=== PATIENT | female | born 1945 | race Caucasian/White ===

== ENCOUNTER 2018-06-22 22:31 | Observation (INO) | payer OTHER ==
--- NOTE | 2018-06-22 22:50 | PDOC ---
History of Present Illness - General Chief Complaint: Blood Pressure Problem Stated Complaint: Blood Pressure Problem Time Seen by Provider: 06/22/18 22:38 - History of Present Illness Initial Comments: 06/22/18 22:57 73 yo F w a hx of HTN, DM, TIA, 2 recent stents, Hep C is here with very elevated BP. Earlier today in addition to elevated BP she had dizziness, nausea but no emesis, and mild SOB. She is not currently experiencing a headache, dizziness, chest pain, SOB, Flank pain, back pain, or any other complaints. She was recently on a trip to [facility] and states that while she was there she also had an episode of elevated BP which was associated with some mild left sided lip and tongue weakness and chest tightness. She has not experienced any weakness or sensory abnormalities today, and has not experienced any chest tightness today. She denies recent fevers, chills, or infections. Denies dysuria, frequency, urgency. 06/22/18 23:10 Past History - Past Medical History Allergies/Adverse Reactions: Allergies Allergy/AdvReac Type Severity Reaction Status Date / Time morphine Allergy Verified 06/22/18 22:42 Home Medications: Ambulatory Orders Aspirin 81 mg PO DAILY 06/22/18 Clopidogrel Bisulfate [Plavix] 75 mg PO DAILY 06/22/18 Genvoya Tablet 1 tab PO DAILY 06/22/18 Losartan Potassium 50 mg PO DAILY 06/22/18 COPD: No Diabetes: Yes HTN: Yes - Surgical History Cardiac Surgery: Yes (stents) - Suicide/Smoking/Psychosocial Hx Smoking History: Never smoked Review of Systems - Review of Systems Comments:: 06/22/18 23:03 CONSTITUTIONAL: Absent: fever, chills, diaphoresis, generalized weakness, malaise, loss of appetite HEENT: Absent: rhinorrhea, nasal congestion, throat pain, throat swelling, difficulty swallowing, mouth swelling, ear pain, eye pain, visual Changes CARDIOVASCULAR: Present: Chest pain 2 weeks back, peripheral edema Absent: syncope, palpitations, irregular heart rate, lightheadedness RESPIRATORY: Present: Shortness of breath Absent: cough, dyspnea with exertion, orthopnea, wheezing, stridor, hemoptysis GASTROINTESTINAL: Absent: abdominal pain, abdominal distension, nausea, vomiting, diarrhea, constipation, melena, hematochezia GENITOURINARY: Absent: dysuria, frequency, urgency, hesitancy, hematuria, flank pain, genital pain MUSCULOSKELETAL: Absent: myalgia, arthralgia, joint swelling SKIN: Absent: rash, itching, pallor HEMATOLOGIC/IMMUNOLOGIC: Absent: easy bleeding, easy bruising, lymphadenopathy, frequent infections ENDOCRINE: Absent: unexplained weight gain, unexplained weight loss, heat intolerance, cold intolerance NEUROLOGIC: Present: Dizziness Absent: headache, focal weakness or paresthesias, unsteady gait, seizure, mental status changes, bladder or bowel incontinence PSYCHIATRIC: Absent: anxiety, depression, suicidal or homicidal ideation, hallucinations. 06/22/18 23:05 *Physical Exam - Vital Signs Last Vital Signs Temp Pulse Resp BP Pulse Ox 98.3 F 61 18 175/90 100 06/22/18 22:42 06/22/18 22:42 06/22/18 22:42 06/22/18 22:42 06/22/18 22:42 - Physical Exam Comments: 06/22/18 23:06 GENERAL: Well developed, well nourished. Awake and alert. No acute distress. HEENT: Normocephalic, atraumatic. PERRLA, EOMI. No conjunctival pallor. Sclera are non- icteric. Moist mucous membranes. Oropharynx is clear. NECK: Supple. Full ROM. No JVD. No thyromegaly. No lymphadenopathy. CARDIOVASCULAR: Regular rate and rhythm. No murmurs, rubs, or gallops. Distal pulses are 2+ and symmetric. PULMONARY: No evidence of respiratory distress. Lungs clear to auscultation bilaterally. No wheezing, rales or rhonchi. ABDOMINAL: Soft. Non-tender. Non-distended. No rebound or guarding. No organomegaly. Normoactive bowel sounds. MUSCULOSKELETAL Normal range of motion at all joints. No bony deformities or tenderness. No CVA tenderness. EXTREMITIES: No cyanosis. No clubbing. No edema. No calf tenderness. SKIN: Warm and dry. Normal capillary refill. No rashes. No jaundice. NEUROLOGICAL: Alert, awake, appropriate. Cranial nerves 2-12 intact. No deficits to light touch in face, upper extremities and lower extremities. No motor deficits in the in face, upper extremities and lower extremities. Normoreflexic in the upper and lower extremities. Normal speech. Toes are down-going bilaterally. Gait is normal without ataxia. PSYCHIATRIC: Cooperative. Good eye contact. Appropriate mood and affect. ED Treatment Course - LABORATORY CBC & Chemistry Diagram: 06/22/18 23:48 06/22/18 23:48 Medical Decision Making - Medical Decision Making 06/22/18 23:09 73 yo F w a hx of HTN, DM, TIA, 2 recent stents, Hep C is here with very elevated BP. BP at bedside is 167/80. Earlier today she had dizziness and nausea associated with her high BP. Denies headache, back pain, visionary changes, flank pain. At the present time all of her symtpoms have resolved except for her elevated BP. DD includes but not limited to: CVA/TIA, ACS, heart failure, hypertensive emergency/urgency Plan: Head CT, Chest XR, labs, trop, ekg, re-assess. Head CT showed no acute pathology CXR showed no infiltrate or acute pathology. Ekg showed no signs of ACS - sinus bradycardia at 56 bpm. Labs unremarkable and within normal limits. Will do 2nd trop at 3 am. If negative patient can leave. 06/23/18 00:47 *DC/Admit/Observation/Transfer Diagnosis at time of Disposition: Hypertensive urgency, Dizziness - Discharge Dispostion Disposition: HOME Condition at time of disposition: Improved Decision to Admit order: No - Referrals Referrals: Violeta Collins [Primary Care Provider] - - Patient Instructions Printed Discharge Instructions: DI for High Blood Pressure, How to Monitor Your Blood Pressure at Home Additional Instructions: You came into the emergency room because you had very high blood pressure. We did a head cat scan which showed that you weren't bleeding in your head. We did a chest Xray which showed you don't have fluid in your lungs. We looked at your blood work and everything looked good and was within the normal limits. Please make sure to call up your primary care doctor to schedule an appointment in the next 3 to 5 days to make sure you are feeling better. It is extremely important for you to work with your primary care doctor and get your blood pressure under control. Please come back to the emergency room immediately if you start vomiting, get a really bad headache, get a fever, have bad chest pain, or have any other new or worsening concerns. Thank you for coming to the [facility] emergency room. We hope you feel better soon. Print Language: MACEDONIAN - Post Discharge Activity
[2018-06-22 23:57] LABS: BASO % 0.8 % (0-2.0); EOS % 1.6 % (0-4.5); HEMATOCRIT 38.5 % (32.4-45.2); HEMOGLOBIN 12.9 GM/dL (10.7-15.3); LYMPH % 31.9 % (8-40); MCH 30.3 pg (25.7-33.7); MCHC 33.6 g/dl (32.0-36.0); MEAN CELL VOLUME 90.2 fl (80-96); MEAN PLT VOLUME 8.2 fl (7.5-11.1); MONO % 8.4 % (3.8-10.2); NEUT % 57.3 % (42.8-82.8); PLATELET COUNT 238 K/MM3 (134-434); RBC 4.26 M/mm3 (3.60-5.2); RDW 13.6 % (11.6-15.6); WHITE BLOOD COUNT 7.8 K/mm3 (4.0-10.0)
[2018-06-23 00:28] LABS: N-TERMINAL BNP 36.1 pg/ml (5-125)
[2018-06-23 00:31] LABS: ALBUMIN 3.6 g/dl (3.4-5.0); ALK PHOS 103 U/L (45-117); ANION GAP 5 MMOL/L (8-16); BILIRUBIN,TOTAL 0.2 mg/dL (0.2-1); BLOOD UREA NITROGEN 7 mg/dL (7-18); CALCIUM 8.7 mg/dL (8.5-10.1); CHLORIDE 101 mmol/L (98-107); CO2 29 mmol/L (21-32); CREATININE 0.7 mg/dL (0.55-1.3); GLUCOSE,RANDOM 119 mg/dL (74-106); POTASSIUM 4.2 mmol/L (3.5-5.1); SGOT/AST 26 U/L (15-37); SGPT/ALT 22 U/L (13-61); SODIUM 135 mmol/L (136-145); TOT PROT 7.9 g/dl (6.4-8.2)
[2018-06-23 00:38] LABS: ACTIVATED PTT 33.2 SECONDS (25.2-36.5); INR 0.97 (0.83-1.09)
--- NOTE | 2018-06-23 01:55 | PDOC ---
*Physical Exam - Vital Signs Last Vital Signs Temp Pulse Resp BP Pulse Ox 98.0 F 66 18 160/78 100 06/23/18 01:07 06/23/18 01:07 06/23/18 01:07 06/23/18 01:07 06/23/18 01:07 ED Treatment Course - LABORATORY CBC & Chemistry Diagram: 06/22/18 23:48 06/22/18 23:48 - ADDITIONAL ORDERS Additional order review: Laboratory Results 06/22/18 06/22/18 06/22/18 23:48 23:48 23:48 PT with INR INR PTT (Actin FS) Sodium 135 L Potassium 4.2 Chloride 101 Carbon Dioxide 29 Anion Gap 5 L BUN 7 Creatinine 0.7 Creat Clearance w eGFR > 60 Random Glucose 119 H Calcium 8.7 Total Bilirubin 0.2 AST 26 ALT 22 Alkaline Phosphatase 103 Troponin I < 0.02 B-Natriuretic Peptide 36.1 Total Protein 7.9 Albumin 3.6 Lipase 101 Blood Type B POSITIVE Antibody Screen Negative 06/22/18 23:48 PT with INR 11.00 INR 0.97 PTT (Actin FS) 33.2 Sodium Potassium Chloride Carbon Dioxide Anion Gap BUN Creatinine Creat Clearance w eGFR Random Glucose Calcium Total Bilirubin AST ALT Alkaline Phosphatase Troponin I B-Natriuretic Peptide Total Protein Albumin Lipase Blood Type Antibody Screen 06/22/18 23:48 RBC 4.26 MCV 90.2 MCHC 33.6 RDW 13.6 MPV 8.2 Neutrophils % 57.3 Lymphocytes % 31.9 Monocytes % 8.4 Eosinophils % 1.6 Basophils % 0.8 Medical Decision Making - Medical Decision Making 73 year old female presenting with stents in place presenting with an episode of nausea/ vomiting earlier today in the setting of severely elevated BP. Second troponin returned at 0.06 so patient will be admitted to [facility] under hospitalist service. Repeat EKG unchanged from previous. Rate 56, NH 180, QRS 82, QTc 426, normal axis and no ST or T wave changes compared to first EKG but there are no previous ones to compare and theur are twi in V1 with flattening in V2. 06/23/18 04:00 *DC/Admit/Observation/Transfer Diagnosis at time of Disposition: Hypertensive urgency, Dizziness - Discharge Dispostion Disposition: HOME Condition at time of disposition: Improved - Referrals Referrals: Violeta Collins [Primary Care Provider] - - Patient Instructions Printed Discharge Instructions: DI for High Blood Pressure, How to Monitor Your Blood Pressure at Home Additional Instructions: You came into the emergency room because you had very high blood pressure. We did a head cat scan which showed that you weren't bleeding in your head. We did a chest Xray which showed you don't have fluid in your lungs. We looked at your blood work and everything looked good and was within the normal limits. Please make sure to call up your primary care doctor to schedule an appointment in the next 3 to 5 days to make sure you are feeling better. It is extremely important for you to work with your primary care doctor and get your blood pressure under control. Please come back to the emergency room immediately if you start vomiting, get a really bad headache, get a fever, have bad chest pain, or have any other new or worsening concerns. Thank you for coming to the [facility] emergency room. We hope you feel better soon. Print Language: VIETNAMESE - Post Discharge Activity
[2018-06-23] MEDS ORDERED: ASPIRIN 81 MG CHEWABLE TABLETS PO ONE (03:50)
[2018-06-23] MEDS ORDERED: ASPIRIN 81 MG CHEWABLE TABLETS ONE (03:51)
[2018-06-23] MEDS ORDERED: METOPROLOL TARTRATE 25 MG TABLET (FP) PO ONE (04:20)
--- NOTE | 2018-06-23 04:23 | HP ---
CHIEF COMPLAINT: chest pressure PCP: Dennis Cardio: Sharad HISTORY OF PRESENT ILLNESS: This is a 73 year old female with a significant past medical history of HTN, CAD s/p stent who presented to the ED with elevated BP, dizziness, nausea and chest pressure. 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 Last night she called the ambulance but they refused to take her to [place] because her BP was too high. She reports that when she was in [place] she was also having numbess to her tongue but that has resolved. [employer] knobber used #[id number] ER course was notable for: (1) 1st trop 0.02, 2nd 0.06 (2) EKG with no acute ST/T wave changes (3) head CT without acute pathology Recent Travel: [place] PAST MEDICAL HISTORY: HTN, CAD, TIA, DM, Hep C s/p treatment, HIV, H. pylori PAST SURGICAL HISTORY: cardiac stent 1.5 years ago and 3 years ago Social History: Smoking: in her 20s Alcohol: pt denies Drugs: pt denies Family History: mother age 84, comps of CVA, h/o DM, HTN father age 73, "bone CA" and PNA all her siblings have HTN and DM Allergies morphine Allergy (Verified 06/22/18 22:42) HOME MEDICATIONS: 3 Medication Instructions Recorded Aspirin 81 mg PO DAILY 06/22/18 Clopidogrel Bisulfate [Plavix] 75 mg PO DAILY 06/22/18 Genvoya Tablet 1 tab PO DAILY 06/22/18 Losartan Potassium 50 mg PO DAILY 06/22/18 Insulin 75/25 26 u SC in AM REVIEW OF SYSTEMS CONSTITUTIONAL: Absent: fever, chills, diaphoresis, generalized weakness, malaise, loss of appetite, weight change HEENT: Absent: rhinorrhea, nasal congestion, throat pain, throat swelling, difficulty swallowing, mouth swelling, ear pain, eye pain, visual changes CARDIOVASCULAR: Present: chest pressure Absent: chest pain, syncope, palpitations, irregular heart rate, lightheadedness , peripheral edema RESPIRATORY: Absent: cough, shortness of breath, dyspnea with exertion, orthopnea, wheezing, stridor, hemoptysis GASTROINTESTINAL: Present: nausea Absent: abdominal pain, abdominal distension, vomiting, diarrhea, constipation, melena, hematochezia GENITOURINARY: Absent: dysuria, frequency, urgency, hesitancy, hematuria, flank pain, genital pain MUSCULOSKELETAL: Absent: myalgia, arthralgia, joint swelling, back pain, neck pain SKIN: Absent: rash, itching, pallor HEMATOLOGIC/IMMUNOLOGIC: Absent: easy bleeding, easy bruising, lymphadenopathy, frequent infections ENDOCRINE: Absent: unexplained weight gain, unexplained weight loss, heat intolerance, cold intolerance NEUROLOGIC: Present: dizziness Absent: headache, focal weakness or paresthesias, unsteady gait, seizure, mental status changes, bladder or bowel incontinence PSYCHIATRIC: Absent: anxiety, depression, suicidal or homicidal ideation, hallucinations. PHYSICAL EXAMINATION Vital Signs - 24 hr 3 06/22/18 06/23/18 06/23/18 22:42 00:58 01:07 Temperature 98.3 F 98.0 F Pulse Rate 61 Pulse Rate [ 66 66 Left] Respiratory 18 18 18 Rate Blood Pressure 175/90 Blood Pressure 172/82 160/78 [Left Arm] O2 Sat by Pulse 100 100 100 Oximetry (%) 3 06/23/18 04:03 Temperature Pulse Rate Pulse Rate [ 70 Left] Respiratory 18 Rate Blood Pressure Blood Pressure 158/84 [Left Arm] O2 Sat by Pulse 99 Oximetry (%) GENERAL: Awake, alert, and fully oriented, in no acute distress. HEAD: Normal with no signs of trauma. EYES: Pupils equal, round and reactive to light, extraocular movements intact, sclera anicteric, conjunctiva clear. No lid lag. EARS, NOSE, THROAT: Ears normal, nares patent, oropharynx clear without exudates. Moist mucous membranes. NECK: Normal range of motion, supple without lymphadenopathy, JVD, or masses. LUNGS: Breath sounds equal, clear to auscultation bilaterally. No wheezes, and no crackles. No accessory muscle use. HEART: Regular rate and rhythm, normal S1 and S2 without murmur, rub or gallop. ABDOMEN: Soft, nontender, not distended, normoactive bowel sounds, no guarding, no rebound, no masses. No hepatomegaly or splenomegaly. MUSCULOSKELETAL: Normal range of motion at all joints. No bony deformities or tenderness. No CVA tenderness. UPPER EXTREMITIES: 2+ pulses, warm, well-perfused. No cyanosis. No clubbing. No peripheral edema. LOWER EXTREMITIES: 2+ pulses, warm, well-perfused. No calf tenderness. No peripheral edema. NEUROLOGICAL: Cranial nerves II-XII intact. Normal speech. Normal gait. PSYCHIATRIC: Cooperative. Good eye contact. Appropriate mood and affect. SKIN: Warm, dry, normal turgor, no rashes or lesions noted, normal capillary refill. Laboratory Results - last 24 hr 3 06/22/18 06/22/18 06/22/18 06/23/18 23:48 23:48 23:48 02:50 WBC 7.8 RBC 4.26 Hgb 12.9 Hct 38.5 MCV 90.2 MCH 30.3 MCHC 33.6 RDW 13.6 Plt Count 238 MPV 8.2 Absolute Neuts (auto) 4.5 Neutrophils % 57.3 Lymphocytes % 31.9 Monocytes % 8.4 Eosinophils % 1.6 Basophils % 0.8 Nucleated RBC % 0 PT with INR 11.00 INR 0.97 PTT (Actin FS) 33.2 Sodium 135 L Potassium 4.2 Chloride 101 Carbon Dioxide 29 Anion Gap 5 L BUN 7 Creatinine 0.7 Creat Clearance w eGFR > 60 Random Glucose 119 H Calcium 8.7 Total Bilirubin 0.2 AST 26 ALT 22 Alkaline Phosphatase 103 Troponin I < 0.02 0.06 H B-Natriuretic Peptide 36.1 Total Protein 7.9 Albumin 3.6 Lipase 101 Blood Type B POSITIVE Antibody Screen Negative ECG 06/22/18 23:29 Sinus bradycardia vent rate 56, QTC [address]/T wave changes 06/23/18 03:59 Normal Sinus rhythm vent rate 61. QTC [address]/T wave changes Radiology Reports CT head no contrast Impression: Mild volume loss without CT evidence of acute intracranial pathology. Correlate clinically to determine further evaluation and follow-up. Reported By: Gabriel Crenshaw MD 06/22/18 1127 Chest PA/Lat Impression Unremarkable examination without evidence of acute cardiopulmonary disease. Reported By: Gabriel Crenshaw MD 06/22/18 0788 ASSESSMENT/PLAN: 73yF with PMH HTN, CAD, TIA, DM, Hep C s/p treatment, HIV, H. pylori presented to the ED with elevated BP, chest pressure, nausea, dizziness. chest pressure with elevated troponin - cardiology consult - observe on tele - trend troponins - ASA given, add metoprolol, already on plavix - echo ordered CAD s/p stent - pt did not take plavix yesterday as she ran out, resume same - cont losartan, ASA, add metoprolol DM - pt states she was previously on 75/25 insulin 40 units BID but she went on a diet and lost weight and now she only takes 26 units in the morning. If she takes insulin at bedtime, her sugar drops - home 75/25 changed to formulary levemir 26u qam - BGM AC/HS with novolog sliding scale HIV - cont home genvoya, pt has home meds with her DVT PPX - heparin deferred, pt fully ambulatory and anticipated LOS <48h FEN - tolerating po - BMP in am - diabetic low sodium diet as tolerated Dispo: pt currently requires further observation for management of her current condition. Visit type - Emergency Visit Emergency Visit: Yes ED Registration Date: 06/22/18 Care time: The patient presented to the Emergency Department on the above date and was hospitalized for further evaluation of their emergent condition. - New Patient This patient is new to me today: Yes Date on this admission: 06/23/18 - Critical Care Critical Care patient: No Hospitalist Screening - Colonoscopy Questionnaire Colonoscopy Questionnaire: Colonoscopy Questionnaire - Patient: 50 - 75 years old and never had a screening colonoscopy: No (last colonoscopy 2- 3 months ago) History of colon or rectal polyps, or CA: Yes History of IBD, Crohn's disease or UC: No History of abdominal radiation therapy as a child: No - Relative: 1 with colon or rectal CA, or polyps at age 60 or younger: No Colon or rectal CA diagnosed at age 45 or younger: No Multiple relatives with colon or rectal CA: No - Outcome: Screening Result: Positive Screen
[2018-06-23] MEDS ORDERED: ONDANSETRON 4 MG/2 ML VIAL IVPUSH ONE (05:17)
[2018-06-23] MEDS ORDERED: METOPROLOL TARTRATE 25 MG TABLET (FP) ONE (05:23)
[2018-06-23] MEDS ORDERED: INSULIN (LEVEMIR) 100 UNITS/ML UNITS SQ ONE (06:39)
[2018-06-23] MEDS: INSULIN (LEVEMIR) 100 UNITS/ML UNITS SQ SCH (06:49)
[2018-06-23] MEDS: INSULIN SLIDING SCALE (NOVOLOG) 1 VIAL SQ SCH ×4 (06:50→21:09)
[2018-06-23 09:48] LABS: BASO % 0.5 % (0-2.0); EOS % 1.2 % (0-4.5); HEMATOCRIT 37.6 % (32.4-45.2); HEMOGLOBIN 12.5 GM/dL (10.7-15.3); LYMPH % 32.5 % (8-40); MCH 29.9 pg (25.7-33.7); MCHC 33.2 g/dl (32.0-36.0); MEAN CELL VOLUME 90.2 fl (80-96); MEAN PLT VOLUME 7.6 fl (7.5-11.1); MONO % 7.3 % (3.8-10.2); NEUT % 58.5 % (42.8-82.8); PLATELET COUNT 235 K/MM3 (134-434); RBC 4.17 M/mm3 (3.60-5.2); RDW 13.6 % (11.6-15.6); WHITE BLOOD COUNT 7.4 K/mm3 (4.0-10.0)
--- NOTE | 2018-06-23 10:01 | CON.CARD ---
Consult Consult Specialty:: Cardiology Referred by:: ER/Hospitalist Reason for Consultation:: HTN, Chest pressure - History of Present Illness Chief Complaint: Chest pressure, dizziness History of Present Illness: 73 year old woman with pmh HTN, DMII, CAD with reported 2 prior stents ( 1.5years ago and 3 years ago as per report) followed by rf test technician at [facility], h/o TIA, HCV, HIV admitted with uncontrolled HTN, chest pressure, dizziness, nausea. Pt seen and examined in the ER today in [facility]. As per report pts symptoms started last week while in [place] and included numbness of her tongue, she waited to come see her doctor here but EMS would only take her to closest hospital. Currently pt denies any complaints. denies any chest pain or sob since coming to the hospital. still has intermittent dizziness. no pnd, orthopnea, or LE edema. no syncope or near syncope. - History Source History Provided By: Patient Limitations to Obtaining History: Language Barrier - Past Medical History TREASURY ANALYST: Yes: TIA Cardio/Vascular: Yes: CAD, HTN, Hyperlipdemia Hepatobiliary: Yes: Hepatitis C Infectious Disease: Yes: HIV, Other (hcv) Endocrine: Yes: Diabetes Mellitus - Past Surgical History Past Surgical History: Yes: Stent - Alcohol/Substance Use Hx Alcohol Use: No History of Substance Use: reports: None - Smoking History Smoking history: Never smoked Have you smoked in the past 12 months: No - Social History ADL: Independent History of Recent Travel: No Home Medications - Allergies Allergies/Adverse Reactions: Allergies Allergy/AdvReac Type Severity Reaction Status Date / Time morphine Allergy Verified 06/22/18 22:42 - Home Medications Home Medications: Ambulatory Orders Aspirin 81 mg PO DAILY 06/22/18 Clopidogrel Bisulfate [Plavix] 75 mg PO DAILY 06/22/18 Genvoya Tablet 1 tab PO DAILY 06/22/18 Losartan Potassium 50 mg PO DAILY 06/22/18 Family Disease History - Family Disease History Family History: Denies Review of Systems - Review of Systems Constitutional: denies: No Symptoms, Chills, Diaphoresis, Fever, Lethargy, Loss of Appetite, Malaise, Night Sweats, Unintentional Wgt. Loss, Weakness, Other Eyes: denies: No Symptoms, Blind Spots, Blurred Vision, Double Vision, Eye Pain , Floaters, Photophobia, Recent Change in Vision, Other HENT: denies: No Symptoms, Difficult Swallowing, Ear Discharge, Ear Pain, Epistaxis, Gingival Bleeding, Hearing Loss, Mouth Swelling, Nasal Congestion, Ocular Prosthesis, Throat Pain, Toothache, Ringing in Ears, Other Neck: denies: No Symptoms, Decreased ROM, Lumps, Pain on Movement, Stiffness, Swollen Glands, Tenderness, Other Cardiovascular: reports: Chest Pain. denies: No Symptoms, Edema, Palpitations, Shortness of Breath, Other Respiratory: denies: No Symptoms, Cough, Exercise Intolerance, Hemoptysis, Orthopnea, PND, Snoring, SOB, SOB on Exertion, Wheezing, Other Gastrointestinal: reports: Nausea. denies: No Symptoms, Abdominal Pain, Bloating, Constipation, Diarrhea, Dysphagia, Indigestion, Melena, Rectal Bleeding, Vomiting, Vomiting Blood, Other Genitourinary: denies: No Symptoms, Burning, Discharge, Dysuria, Flank Pain, Frequency, Hematuria, Incontinence, Lesions, Menses, Pain, Testicular Mass, Testicular Pain, Testicular Swelling, Urgency, Vaginal Bleeding, Other Breasts: denies: No Symptoms Reported, See HPI, Breast Implants, Discharge from Nipple, Lumps, Pain, Skin Changes, Other Musculoskeletal: denies: No Symptoms, Back Pain, Crepitus, Decreased ROM, Extremity Pain, Joint Pain, Joint Swelling, Muscle Pain, Muscle Cramps, Muscle Weakness, Other Integumentary: denies: No Symptoms, Blister, Bruising, Change in Color, Eczema, Erythema, Incision, Lesions, Lump, Pallor, Pruritis, Rash, Wound, Other Neurological: reports: Dizziness, Headache, Numbness. denies: No Symptoms, Change in LOC, Change in Speech, Confusion, Incoordination, Parasthesia, Pre- Existing Deficit, Seizure, Syncope, Tremors, Unsteady Gait, Weakness, Other Endocrine: denies: No Symptoms, Excessive Sweating, Flushing, Increased Hunger, Increased Thirst, Intolerance to Cold, Intolerance to Heat, Unexplained Weight Gain, Unexplained Weight Loss, Other Hematology/Lymphatic: denies: No Symptoms, Easily Bruised, Excessive Bleeding, Swollen Glands, Other Psychiatric: denies: No Symptoms, Altered Sleep Pattern, Anxiety, Depression, Hallucinations, Panic, Paranoia, Suicidal, Other - Risk Factors Known Risk Factors: Yes: Diabetes Mellitus, Hypercholesterolemia, Hypertension Vital Signs: Vital Signs Temperature 97.6 F 06/23/18 07:15 Pulse Rate 49 L 06/23/18 07:38 Respiratory Rate 18 06/23/18 07:38 Blood Pressure 130/78 06/23/18 07:15 O2 Sat by Pulse Oximetry (%) 100 06/23/18 07:38 Constitutional: Yes: Well Nourished, No Distress, Calm Eyes: Yes: WNL, Conjunctiva Clear, EOM Intact HENT: Yes: WNL, Atraumatic, Normocephalic Neck: Yes: WNL, Supple, Trachea Midline Respiratory: Yes: WNL, Regular, CTA Bilaterally. No: Rales, Rhonchi, Wheezes Gastrointestinal: Yes: WNL, Normal Bowel Sounds, Soft. No: Distention, Tenderness Renal/: Yes: WNL Cardiovascular: Yes: WNL, Regular Rate and Rhythm. No: Bradycardia, Tachycardia , Pulse Irregular, Gallop, Rub, Varicosities JVD: No Carotid Bruit: No PMI: Non-Displaced Heart Sounds: Yes: S1, S2. No: Split S2, S3, S4, Clicks, Gallop, Rub, Bruit Murmur: No: Systolic Murmur, Diastolic Murmur Musculoskeletal: Yes: WNL Extremities: Yes: WNL Edema: No Peripheral Pulses WNL: Yes Peripheral Pulses: 2+ Left Doralis Pedis, 2+ Right Dorsalis Pedis Integumentary: Yes: WNL Neurological: Yes: Alert, Oriented Psychiatric: Yes: Alert, Oriented - Other Data Labs, Other Data: CBC, BMP 06/23/18 09:38 INR, PTT INR 0.97 (0.83-1.09) 06/22/18 23:48 Troponin, BNP 06/22/18 06/22/18 06/23/18 23:48 23:48 02:50 Troponin I < 0.02 0.06 H B-Natriuretic Peptide 36.1 Troponin, BNP 06/22/18 06/22/18 06/23/18 23:48 23:48 02:50 Troponin I < 0.02 0.06 H B-Natriuretic Peptide 36.1 ekg-sinus bradycardia 56bpm, otherwise normal ECG Prior Cardiac Procedures: PTCA with Stent Imaging - Results Chest X-ray: Report Reviewed, Image Reviewed EKG: Report Reviewed, Image Reviewed Other: Report Reviewed, Image Reviewed (tele-no reported events overnight) Assessment/Plan 73 year old woman with pmh HTN, DMII, CAD with reported 2 prior stents ( 1.5years ago and 3 years ago as per report) followed by rf test technician at [facility], h/o TIA, HCV, HIV admitted with uncontrolled HTN, chest pressure, dizziness, nausea. As per report pts symptoms started last week while in [place] and included numbness of her tongue, she waited to come see her doctor here but EMS would only take her to closest hospital. Currently pt denies any complaints. denies any chest pain or sob since coming to the hospital. Chest pressure-r/o ACS, h/o CAD with last PCI reported 1.5 years ago and 3 years ago, details unavailable -please obtain records from [facility] re cardiac cath reports and recent work up -symptoms resolved since admission -in setting of uncontrolled HTN -no ischemia on ekg -2nd troponin mildly elevated, no CK level to correlate -fup 3rd set cardiac enzymes -fup echo -cont ASA, Plavix, metoprolol, losartan -start statin if no contraindication (h/o HCV unknown status) -tele monitoring -HTN control improved -depending on review of prior cardiac work up including cardiac cath report ischemic work up to be considered HTN-uncontrolled on admission -now better controlled -cont metoprolol for now as HR tolerates -cont Losartan and titrate as needed for HTN control
[2018-06-23] MEDS: CLOPIDOGREL BISULFATE 75 MG TABLET (FP) PO SCH (10:28)
[2018-06-23] MEDS: ASPIRIN COATED 81 MG TABLET.EC PO SCH (10:28)
[2018-06-23] MEDS: LOSARTAN POTASSIUM 50 MG TABLET (FP) PO SCH (10:28)
--- NOTE | 2018-06-23 10:48 | EKG ---
Test Reason : Blood Pressure : / mmHG Vent. Rate : 047 BPM Atrial Rate : 047 BPM P-R Int : 192 ms QRS Dur : 082 ms QT Int : 490 ms P-R-T Axes : -06 021 041 degrees QTc Int : 433 ms SINUS BRADYCARDIA OTHERWISE NORMAL ECG WHEN COMPARED WITH ECG OF 23-JUN-2018 03:59, NO SIGNIFICANT CHANGE WAS FOUND Confirmed by MD JOSE, GORGE ([id number]) on 06/23/2018 10:47:35 AM Referred By: Confirmed By:GORGE GARCIA MD
--- NOTE | 2018-06-23 10:50 | EKG ---
Test Reason : Blood Pressure : / mmHG Vent. Rate : 061 BPM Atrial Rate : 061 BPM P-R Int : 180 ms QRS Dur : 082 ms QT Int : 424 ms P-R-T Axes : 015 028 038 degrees QTc Int : 426 ms NORMAL SINUS RHYTHM NORMAL ECG Confirmed by MD JOSE, GORGE ([id number]) on 06/23/2018 10:50:33 AM Referred By: Confirmed By:GORGE GARCIA MD
--- NOTE | 2018-06-23 10:51 | EKG ---
Test Reason : Blood Pressure : / mmHG Vent. Rate : 056 BPM Atrial Rate : 056 BPM P-R Int : 178 ms QRS Dur : 092 ms QT Int : 444 ms P-R-T Axes : 005 025 034 degrees QTc Int : 428 ms SINUS BRADYCARDIA OTHERWISE NORMAL ECG NO PREVIOUS ECGS AVAILABLE Confirmed by MD JOSE, GORGE ([id number]) on 06/23/2018 10:51:17 AM Referred By: Confirmed By:GORGE GARCIA MD
[2018-06-23 10:59] LABS: ANION GAP 9 MMOL/L (8-16); BLOOD UREA NITROGEN 7 mg/dL (7-18); CALCIUM 9.1 mg/dL (8.5-10.1); CHLORIDE 105 mmol/L (98-107); CO2 26 mmol/L (21-32); CREATININE 0.7 mg/dL (0.55-1.3); GLUCOSE,RANDOM 94 mg/dL (74-106); MAGNESIUM 2.1 mg/dL (1.8-2.4); PHOSPHOROUS 3.3 mg/dL (2.5-4.9); POTASSIUM 4.3 mmol/L (3.5-5.1); SODIUM 139 mmol/L (136-145)
--- NOTE | 2018-06-23 11:44 | ECHO ---
Name: LIZZIE ARTHURANTONIO EMI Exam:Adult Echocardiogram Study Date: 06/23/2018 08:03 AM Age: 73 yrs Reason For Study: chest pressure Height: 60 in Weight: 142 lb BSA: 1.6 m2 MMode/2D Measurements & Calculations IVSd: 0.82 cm Ao root diam: 3.3 cm LVIDd: 3.6 cm LA dimension: 4.1 cm LVIDs: 1.9 cm ACS: 1.6 cm LVPWd: 0.90 cm IVSs: 1.1 cm LVPWs: 1.2 cm EDV(Teich): 55.9 ml ESV(Teich): 10.7 ml Doppler Measurements & Calculations MV E max koby: 52.8 cm/sec Ao V2 max: 129.1 cm/sec MV A max koby: 72.3 cm/sec Ao max P.7 mmHg MV E/A: 0.73 Ao V2 mean: 83.2 cm/sec Ao mean P.2 mmHg Ao V2 VTI: 30.8 cm MR max koby: 496.3 cm/sec TR max koby: 184.3 cm/sec MR max P.7 mmHg TR max P.6 mmHg Med Peak E' Koby: 4.2 cm/sec Med E/e': 12.7 Lat Peak E' Koby: 8.4 cm/sec Lat E/e': 6.3 Procedure A two-dimensional transthoracic echocardiogram with color flow and Doppler was performed. The study w as technically difficult with many images being suboptimal in quality. The patient was in normal sinus r hythm during the exam. Left Ventricle Left ventricular systolic function is normal. Ejection Fraction = 60%. E/A reversal consistent with b ut not diagnostic of poor LV compliance. Right Ventricle The right ventricle is not well visualized. The right ventricle is mildly dilated. The right ventricu lar systolic function is grossly normal. Atria The left atrium is mildly dilated. Right atrial size is normal. Mitral Valve The mitral valve is normal. There is mild mitral regurgitation. Tricuspid Valve The tricuspid valve is normal. There is mild tricuspid regurgitation. Aortic Valve The aortic valve is trileaflet. The aortic valve is normal in structure and function. No aortic regur gitation is present. Pulmonic Valve The pulmonic valve is not well visualized. The pulmonic valve is not well seen, but is grossly normal . There is no pulmonic valvular regurgitation. Great Vessels The aortic root is normal size. Pericardium/Pleura There is no pericardial effusion. There is a hypoechoic structure seen in the liver likely consistent with a liver cyst but is not completely visualized. Suggest dedicated imaging to further evaluate as clinica lly indicated. Interpretation Summary The study was technically difficult with many images being suboptimal in quality. Left ventricular systolic function is normal. E/A reversal consistent with but not diagnostic of poor LV compliance The right ventricle is mildly dilated. The right ventricular systolic function is grossly normal. The left atrium is mildly dilated. There is mild mitral regurgitation. There is mild tricuspid regurgitation. There is no pericardial effusion. There is a hypoechoic structure seen in the liver likely consistent with a liver cyst but is not comp letely visualized. Suggest dedicated imaging to further evaluate as clinically indicated. MD Daniel Miles 06/23/2018 11:43 AM
--- NOTE | 2018-06-23 12:22 | PN ---
Progress Note, Physician Chief Complaint: patient seen in ER sleeping in bed woke up patient she denies chest pain feeling hungry - Current Medication List Current Medications: Active Medications Aspirin (Ecotrin -) 81 mg PO DAILY [facility] Last Admin: 06/23/18 10:28 Dose: 81 mg Clopidogrel Bisulfate (Plavix -) 75 mg PO DAILY [facility] Last Admin: 06/23/18 10:28 Dose: 75 mg Insulin Aspart (Novolog Vial Sliding Scale -) 1 vial SQ [facility]; Protocol Last Admin: 06/23/18 11:47 Dose: Not Given Insulin Detemir (Levemir Vial) 26 units SQ DAILY@0700 [facility] Last Admin: 06/23/18 06:49 Dose: 26 units Losartan Potassium (Cozaar -) 50 mg PO DAILY [facility] Last Admin: 06/23/18 10:28 Dose: 50 mg Metoprolol Tartrate (Lopressor -) 25 mg PO BID [facility] Non-Formulary Medication (Genvoya Tablet) 1 tab PO DAILY [facility] - Objective Vital Signs: Vital Signs Temperature 98.1 F 06/23/18 10:28 Pulse Rate 52 L 06/23/18 10:28 Respiratory Rate 18 06/23/18 10:28 Blood Pressure 140/78 06/23/18 10:28 O2 Sat by Pulse Oximetry (%) 100 06/23/18 10:28 Constitutional: Yes: Calm Cardiovascular: Yes: Regular Rate and Rhythm, S1, S2 Respiratory: Yes: CTA Bilaterally Gastrointestinal: Yes: Normal Bowel Sounds, Soft Edema: No Neurological: Yes: Alert, Oriented Labs: CBC, BMP 06/23/18 09:38 06/23/18 09:38 INR, PTT INR 0.97 (0.83-1.09) 06/22/18 23:48 Problem List - Problems (1) Hypertensive urgency Assessment/Plan: BP better controlled continue losartan,metoprolol Code(s): I16.0 - HYPERTENSIVE URGENCY (2) Chest pain Assessment/Plan: echo done left ventricle systolic function normal mild MR, asa,plavix,bb will start statin 3rd set CE pending Code(s): R07.9 - CHEST PAIN, UNSPECIFIED
[2018-06-23 17:07] VITALS: BMI 27.6
[2018-06-23] MEDS ORDERED: FLU VACCINE QUAD 60 MCG/0.5 ML (MDV 18-19) IM ONE (17:12)
[2018-06-23] MEDS ORDERED: PT OWN MED DRAWER 7, Y5N ONE ×3 (18:39→22:56)
[2018-06-23] MEDS: METOPROLOL TARTRATE 25 MG TABLET (FP) PO SCH (21:00)
[2018-06-23] MEDS ORDERED: ATORVASTATIN CA 10 MG TABLET (FP) PO SCH (22:00)
[2018-06-24] MEDS: INSULIN SLIDING SCALE (NOVOLOG) 1 VIAL SQ SCH ×3 (06:00→17:06)
[2018-06-24] MEDS: CLOPIDOGREL BISULFATE 75 MG TABLET (FP) PO SCH (09:50)
[2018-06-24] MEDS: LOSARTAN POTASSIUM 50 MG TABLET (FP) PO SCH (09:50)
[2018-06-24] MEDS: ASPIRIN COATED 81 MG TABLET.EC PO SCH (09:50)
[2018-06-24] MEDS: METOPROLOL TARTRATE 25 MG TABLET (FP) PO SCH (09:50)
[2018-06-24] MEDS: INSULIN (LEVEMIR) 100 UNITS/ML UNITS SQ SCH (09:51)
[2018-06-24] MEDS ORDERED: GENVOYA PO SCH (10:00)
[2018-06-24 11:16] VITALS: TEMP 97.8
[2018-06-24] MEDS ORDERED: METOPROLOL TARTRATE 25 MG TABLET (FP) PO SCH (12:16)
--- NOTE | 2018-06-24 12:16 | PN ---
Progress Note, Physician History of Present Illness: seen and examined today in [facility]. no overnight events. no further chest pain. - Current Medication List Current Medications: Active Medications Aspirin (Ecotrin -) 81 mg PO DAILY [facility] Last Admin: 06/24/18 09:50 Dose: 81 mg Clopidogrel Bisulfate (Plavix -) 75 mg PO DAILY [facility] Last Admin: 06/24/18 09:50 Dose: 75 mg Insulin Aspart (Novolog Vial Sliding Scale -) 1 vial SQ [facility]; Protocol Last Admin: 06/24/18 06:00 Dose: Not Given Insulin Detemir (Levemir Vial) 26 units SQ DAILY@0700 [facility] Last Admin: 06/24/18 09:51 Dose: 26 units Losartan Potassium (Cozaar -) 50 mg PO DAILY [facility] Last Admin: 06/24/18 09:50 Dose: 50 mg Metoprolol Tartrate (Lopressor -) 25 mg PO BID [facility] Last Admin: 06/24/18 09:50 Dose: Not Given Non-Formulary Medication (Genvoya Tablet) 1 tab PO DAILY [facility] Last Admin: 06/24/18 09:51 Dose: 1 tab - Objective Vital Signs: Vital Signs Temperature 97.8 F 06/24/18 10:00 Pulse Rate 50 L 06/24/18 10:00 Respiratory Rate 16 06/24/18 10:00 Blood Pressure 105/54 L 06/24/18 10:00 O2 Sat by Pulse Oximetry (%) 96 06/24/18 10:00 Constitutional: Yes: No Distress, Calm Eyes: Yes: Conjunctiva Clear, EOM Intact, PERRL HENT: Yes: Atraumatic, Normocephalic Neck: Yes: Supple, Trachea Midline Cardiovascular: Yes: Regular Rate and Rhythm, S1, S2. No: Bradycardia, Tachycardia, Pulse Irregular, Bruit, JVD, Gallop, Murmur, Rub, S3, S4, Varicosities Respiratory: Yes: Regular, CTA Bilaterally. No: Rales, Rhonchi, Wheezes Gastrointestinal: Yes: Normal Bowel Sounds, Soft. No: Distention, Tenderness Musculoskeletal: Yes: WNL Extremities: Yes: WNL Edema: No Peripheral Pulses WNL: Yes Neurological: Yes: Alert, Oriented Psychiatric: Yes: Alert, Oriented Labs: CBC, BMP 06/23/18 09:38 06/23/18 09:38 INR, PTT INR 0.97 (0.83-1.09) 06/22/18 23:48 - ....Imaging Chest X-ray: Report Reviewed, Image Reviewed EKG: Report Reviewed, Image Reviewed Other: Report Reviewed, Image Reviewed (tele-nsr, sinus bradycardia) Assessment/Plan 73 year old woman with pmh HTN, DMII, CAD with reported 2 prior stents ( 1.5years ago and 3 years ago as per report) followed by telex operator at [facility], h/o TIA, HCV, HIV admitted with uncontrolled HTN, chest pressure, dizziness, nausea. As per report pts symptoms started last week while in [place] and included numbness of her tongue, she waited to come see her doctor here but EMS would only take her to closest hospital. Currently pt denies any complaints. denies any chest pain or sob since coming to the hospital. Chest pressure-r/o ACS, h/o CAD with last PCI reported 02/2018 1.5 years ago and 3 years ago, details unavailable -spoke with pts daughter on phone today who states that she had a stent 02/2018 at [facility] and had fup planned with her telex operator this week -symptoms resolved since admission -in setting of uncontrolled HTN -no ischemia on ekg -ck and trop did not trend up -echo showed normal LV systolic function only mild valvular abnl -cont ASA, Plavix, metoprolol, losartan -start statin if no contraindication (h/o HCV unknown status) -HTN control improved -given recent stent once HTN adequately controlled pt would be acceptable for discharge from a cardiac standpoint with plan for close outpatient fup with her telex operator HTN-uncontrolled on admission -improving -cont metoprolol for now as HR tolerates -cont Losartan and titrate as needed for HTN control Sinus bradycardia-mild during day, 40s overnight, asymptomatic -can reduce lopressor to 12.5mg bid and pt can have outpatient fup to consider holter monitor
--- NOTE | 2018-06-24 14:33 | DS ---
Physical Examination Vital Signs: Vital Signs Temperature 97.8 F 06/24/18 10:00 Pulse Rate 50 L 06/24/18 10:00 Respiratory Rate 16 06/24/18 10:00 Blood Pressure 105/54 L 06/24/18 10:00 O2 Sat by Pulse Oximetry (%) 96 06/24/18 10:00 Constitutional: Yes: No Distress Eyes: Yes: WNL HENT: Yes: WNL Neck: Yes: WNL Cardiovascular: Yes: WNL Respiratory: Yes: WNL Gastrointestinal: Yes: WNL Renal/: Yes: WNL Musculoskeletal: Yes: WNL Extremities: Yes: WNL Edema: No Peripheral Pulses WNL: Yes Integumentary: Yes: WNL Wound/Incision: Yes: Clean/Dry Neurological: Yes: WNL ...Motor Strength: WNL Psychiatric: Yes: WNL Labs: CBC, BMP 06/23/18 09:38 06/23/18 09:38 Discharge Summary Reason For Visit: ELEVATED TROPONIN/HYPERTENSIVE URGENCY Current Active Problems Chest pain (Acute) Dizziness (Acute) Hypertensive urgency (Acute) Procedures: Principal: CT HEAD Hospital Course: ADMITTED FOR HTN EMERGENCY AND TREATED MONITORED ON TELEMETRTY NO ALARMS, CLEARED BY CARDIOLOGY Condition: Improved - Instructions Diet, Activity, Other Instructions: You came into the emergency room because you had very high blood pressure. We did a head cat scan which showed that you weren't bleeding in your head. We did a chest Xray which showed you don't have fluid in your lungs. We looked at your blood work and everything looked good and was within the normal limits. Please make sure to call up your primary care doctor to schedule an appointment in the next 3 to 5 days to make sure you are feeling better. It is extremely important for you to work with your primary care doctor and get your blood pressure under control. Please come back to the emergency room immediately if you start vomiting, get a really bad headache, get a fever, have bad chest pain, or have any other new or worsening concerns. Thank you for coming to the [facility] emergency room. We hope you feel better soon. SEE DR COLLINS IN 1 WEEK Referrals: Violeta Collins [Primary Care Provider] - Disposition: VNS/HOME HEALTH CARE - Home Medications Comprehensive Discharge Medication List: Ambulatory Orders Aspirin 81 mg PO DAILY 06/22/18 Clopidogrel Bisulfate [Plavix] 75 mg PO DAILY 06/22/18 Genvoya Tablet 1 tab PO DAILY 06/22/18 Losartan Potassium 50 mg PO DAILY 06/22/18 Atorvastatin Ca [Lipitor] 10 mg PO HS tablet 06/24/18 Metoprolol Tartrate [Lopressor -] 12.5 mg PO BID #60 tablet 06/24/18
[2018-06-24 15:42] VITALS: BP 101/59; PULSE 52
[2018-06-24] MEDS ORDERED: PT OWN MED DRAWER 7, Y5N ONE (19:34)
== END 2018-06-24 19:47 | disposition home health service (06) | DRG 305 ==
LOC: JER 22:31 → JERBED 06-23 03:57 → INTOOBSV 06-23 03:57 → UNDOADMIN 06-23 05:21 → JERBED 06-23 05:21 → J4S 06-23 16:34
PROVIDERS: ADMIT Internal Medicine; ATTEND Family Medicine
PROC: 3E0234Z Introduction of Serum, Toxoid and Vaccine into Muscle, Percutaneous Approach (ICD-10-PCS; principal; 2018-06-23)
PROC: 3E033GC Introduction of Other Therapeutic Substance into Peripheral Vein, Percutaneous Approach (ICD-10-PCS; 2018-06-23)
PROC: 3E013VG Introduction of Insulin into Subcutaneous Tissue, Percutaneous Approach (ICD-10-PCS; 2018-06-23)
DX: I16.0 Hypertensive urgency (principal); R42 Dizziness and giddiness; I25.10 Atherosclerotic heart disease of native coronary artery without angina pectoris; E11.9 Type 2 diabetes mellitus without complications; R00.1 Bradycardia, unspecified; I10 Essential (primary) hypertension; B18.2 Chronic viral hepatitis C; Z21 Asymptomatic human immunodeficiency virus [HIV] infection status; R77.8 Other specified abnormalities of plasma proteins; Z95.5 Presence of coronary angioplasty implant and graft; Z86.73 Personal history of transient ischemic attack (TIA), and cerebral infarction without residual deficits; Z79.82 Long term (current) use of aspirin; Z88.6 Allergy status to analgesic agent; Z79.4 Long term (current) use of insulin; Z23 Encounter for immunization
CPT/HCPCS: 36415; 70450-TC; 71046-TC-FY; 76705-TC; 80048; 80053; 80061; 82550; 82962; 83690; 83721; 83735; 83880; 84100; 84484; 85025; 85610; 85730; 86850; 86900; 86901; 90471; 90688; 93005; 93010; 93306-TC; 96372; 96374; 99285-25; G0378

== ENCOUNTER 2020-05-31 04:37 | Day surgery (SDC) | payer OTHER ==
[2020-05-29 16:24] VITALS: BMI 27.3
[2020-05-31 10:22] LABS: HEMATOCRIT 35.9 % (32.4-45.2); MCH 29.8 pg (25.7-33.7); MCHC 33.6 g/dl (32.0-36.0); MEAN CELL VOLUME 88.6 fl (80-96); MEAN PLT VOLUME 7.5 fl (7.5-11.1); PLATELET COUNT 370 K/MM3 (134-434); RBC 4.05 M/mm3 (3.60-5.2); RDW 13.7 % (11.6-15.6); WHITE BLOOD COUNT 10.6 K/mm3 (4.0-10.0)
[2020-05-31 10:28] LABS: INR 1.03 (0.83-1.09); PROTHROMBIN TIME (PATIENT) 12.1 SEC (9.7-13.0)
[2020-05-31 10:31] LABS: ACTIVATED PTT 32.9 SECONDS (25.2-36.5)
[2020-05-31 10:46] LABS: ALBUMIN 3.5 g/dl (3.4-5.0); BILIRUBIN,TOTAL 0.3 mg/dL (0.2-1); BLOOD UREA NITROGEN 13.1 mg/dL (7-18); CREATININE 0.8 mg/dL (0.55-1.3); POTASSIUM 3.4 mmol/L (3.5-5.1); TOT PROT 7.5 g/dl (6.4-8.2)
[2020-05-31] MEDS ORDERED: CLINDAMYCIN 600 MG PREMIX BAG IVPB ONE (14:00)
[2020-05-31] MEDS ORDERED: IOHEXOL 180 MG/1 ML ML IJ ONE (14:22)
[2020-05-31] MEDS ORDERED: DEXAMETHASONE SOD PHOSPHATE 4 MG/1 ML VIAL ONE (14:27)
[2020-05-31] MEDS ORDERED: ceFAZolin SODIUM 1 GM VIAL ONE ×2 (14:27)
[2020-05-31] MEDS ORDERED: DESFLURANE GAS 240 ML BOTTLE IH ONE (14:27)
[2020-05-31] MEDS ORDERED: KETOROLAC TROMETHAMINE 30 MG/1 ML VIAL ONE (14:27)
[2020-05-31] MEDS ORDERED: CLINDAMYCIN PHOSPHATE 600 MG/4 ML VIAL ONE (14:33)
[2020-05-31] MEDS ORDERED: PROMETHAZINE HCL 25 MG/1 ML VIAL IVPUSH PRN (14:44)
[2020-05-31] MEDS ORDERED: ONDANSETRON 4 MG/2 ML VIAL IVPUSH PRN (14:44)
[2020-05-31] MEDS ORDERED: oxyCODONE HCL 5 MG TABLET PO PRN (14:44)
--- NOTE | 2020-05-31 15:05 | OP ---
DATE OF OPERATION: 05/31/2020 PREOPERATIVE DIAGNOSIS: Right hydronephrosis, right renal colic. POSTOPERATIVE DIAGNOSIS: Right ureteral stone. OPERATIVE PROCEDURE: Cystoscopy, right retrograde pyelogram, right ureteroscopy, right retrieval stone and right placement of JJ stent. ANESTHESIA: General. Under above-stated anesthesia patient was prepped and draped in the usual sterile manner. She was placed in the dorsal lithotomy position. Cystoscopy revealed a normal bladder. Ureteral orifices were within normal limits. Efflux of urine was clear from the left. None was seen from the right. A right retrograde pyelogram was performed. This revealed proximal hydroureteronephrosis to the level of the midureter. A Glidewire was passed up the right renal unit. Cystoscope was removed. A semirigid ureteroscope was inserted. Ureteroscopy revealed a stone in the right midureter. Using a holmium laser, several pieces were lased and removed. The stone bounced back into the renal pelvis. A continuation of the ureteroscope was unable to locate any stone fragments. Therefore, the ureteroscope was removed. A 22-cm 6-[place] right JJ stent was placed in place. X-rays confirmed good position of the stent. The bladder was emptied. The patient tolerated the procedure well. She returned to the recovery room in good condition. Broderick [id number]
--- NOTE | 2020-05-31 15:12 | HP ---
DATE OF ADMISSION: 05/31/2020 HISTORY: Patient is a 75-year-old female who presents with right renal colic, right hydronephrosis, frequency, dysuria and persistent hematuria. She also has history of high blood pressure, diabetes, hyperlipidemia, coronary artery disease, treated hepatitis C. She is status post angioplasty and stent placement. She also has a history of peripheral vascular disease. She has undergone biopsy of the liver as well as an oophorectomy and a biopsy of the breast. ALLERGIES: She claims she is allergic to PENICILLIN and MORPHINE. SOCIAL HISTORY: She denies tobacco or alcohol use. PHYSICAL EXAMINATION: Abdomen: Patient's abdomen is soft. There is right CVA tenderness. There is also right lower quadrant tenderness. Pelvic: Atrophic vaginitis with a grade 2 cystorectocele. Extremities: Full range of motion with no cyanosis, clubbing or edema. CAT scan revealed right hydronephrosis, but no point of obstruction. Plan is for cystoscopy, right retrograde pyelogram, possible right ureteroscopy, laser lithotripsy and placement of a JJ stent. This was explained to patient and she agrees. Broderick [id number]
[2020-05-31 17:32] VITALS: TEMP 97
[2020-05-31 19:26] VITALS: BP 155/67; PULSE 50
--- NOTE | 2020-06-01 14:36 | PATH ---
Cytology Non-Gynecological Report Patient Name: EMI WILL [facility]. Rec. #: [id number] /Age/Gender: 1945 (Age: 75) / F Account: [id number] Location: [facility] SURGICAL Taken: 05/31/2020 Received: 05/31/2020 Reported: 06/01/2020 Physicians: Claudia Retana M.D. Specimen(s) Received URINE VOIDED Clinical History Right hydronephrosis Final Diagnosis URINE FOR CYTOLOGY: SATISFACTORY FOR EVALUATION. NEGATIVE FOR HIGH GRADE UROTHELIAL CARCINOMA. SCATTERED SQUAMOUS EPITHELIAL CELLS, RARE UROTHELIAL CELLS AND RED BLOOD CELLS PRESENT. Electronically Signed Liz Whitaker M.D. Gross Description Approximately 50cc of yellow fluid received fresh. One cytospin prepared
--- NOTE | 2020-06-02 15:44 | PATH ---
Surgical Pathology Report Patient Name: EMI WILL Med. Rec. #: [id number] /Age/Gender: 1945 (Age: 75) / F Account: [id number] Location: [facility] SURGICAL Taken: 05/31/2020 Received: 06/01/2020 Reported: 06/02/2020 Physicians: Claudia Retana M.D. Specimen(s) Received RIGHT URETERAL STONES Clinical History Right hydronephrosis Final Diagnosis RIGHT URETERAL STONES, REMOVAL: CONSISTENT WITH URETERAL CALCULI. SENT FOR CHEMICAL ANALYSIS. Electronically Signed Liz Whitaker M.D. Gross Description Received in formalin labeled "right ureteral stones," is a 0.3 x 0.3 x 0.1 cm aggregate of marr, fragmented calculi. The formalin is drained and the specimen is dried and sent for chemical analysis. DL/06/01/2020 saudi/06/01/2020
[2020-06-14 13:15] LABS: CA OXALATE MONOHYDR. 10; CALCIUM CARBONATE 90
== END 2020-05-31 19:20 | disposition home or self-care (01) ==
LOC: JASU-SURG 04:37
PROVIDERS: ATTEND Urology
PROC: 0TC68ZZ Extirpation of Matter from Right Ureter, Via Natural or Artificial Opening Endoscopic (ICD-10-PCS; principal; 2020-05-31 12:00)
PROC: 0T768DZ Dilation of Right Ureter with Intraluminal Device, Via Natural or Artificial Opening Endoscopic (ICD-10-PCS; 2020-05-31 12:00)
PROC: BT1DZZZ Fluoroscopy of Right Kidney, Ureter and Bladder (ICD-10-PCS; 2020-05-31 12:00)
DX: N20.1 Calculus of ureter (principal); Z88.0 Allergy status to penicillin; Z88.6 Allergy status to analgesic agent
CPT/HCPCS: 36415; 80053; 82360; 82962; 85027; 85610; 85730; 86850; 86900; 86901; 86922; 87086; 88108; 88300-TC; 94760